=== PATIENT | male | born 1985 | race Caucasian/White ===

== ENCOUNTER 2019-11-01 15:40 | Emergency (ER) | payer OTHER ==
[~2019-11-01] VITALS: Ht 188 cm; Wt 68.0 kg
--- NOTE | 2019-11-01 15:48 | NUR ---
pt is in room #2b. dr Callahan evaluated the pt.
[2019-11-01] MEDS ORDERED: MORPHINE SULFATE 2 MG/1 ML DISP.SYRIN IV ONE ×2 (16:00→17:15)
[2019-11-01] MEDS ORDERED: ONDANSETRON 4 MG/2 ML VIAL IV ONE ×2 (16:00→22:45)
[2019-11-01] MEDS ORDERED: ONDANSETRON 4 MG/2 ML VIAL ONE ×2 (16:03→22:39)
[2019-11-01] MEDS ORDERED: MORPHINE SULFATE 4 MG/1 ML DISP.SYRIN ONE ×3 (16:03→22:39)
[2019-11-01 16:52] LABS: BASOPHILS % (AUTO) 0.3 % (0.0-2.0); EOSINOPHILS # (AUTO) 0.1 K/uL (0.0-0.7); EOSINOPHILS % (AUTO) 1.2 % (0.0-7.0); HEMATOCRIT 42.7 % (36.7-47.1); HEMOGLOBIN 14.6 g/dL (12.5-16.3); LYMPHOCYTES # (AUTO) 1.6 K/uL (20.0-40.0); LYMPHOCYTES % (AUTO) 15.7 % (20.5-51.5); MEAN CORPUSCULAR HEMOGLOBIN 29.2 uug (23.8-33.4); MEAN CORPUSCULAR HGB CONC 34 g/dL (32.5-36.3); MEAN CORPUSCULAR VOLUME 85.4 fL (73.0-96.2); MONOCYTES # (AUTO) 0.9 K/uL (2.0-10.0); MONOCYTES % (AUTO) 9.3 % (0.0-11.0); NEUTROPHILS # (AUTO) 7.3 K/uL (1.8-8.9); NEUTROPHILS % (AUTO) 73.5 % (38.5-71.5); PLATELET COUNT (AUTO) 211 K/uL (152-348)
[2019-11-01 16:59] LABS: POTASSIUM 3.6 mmol/L (3.5-5.1)
[2019-11-01 17:05] LABS: BILIRUBIN,DIRECT 0.1 mg/dL (0.0-0.2); BILIRUBIN,TOTAL 0.6 mg/dL (0.2-1.0); TOTAL PROTEIN, SERUM 7.7 g/dL (6.4-8.2)
[2019-11-01] MEDS ORDERED: SWABABLE VALVE TRANSFER SET EA MC ONE (17:21)
[2019-11-01] MEDS ORDERED: IV NORMAL SALINE 250 ML IV ONE (17:21)
[2019-11-01] MEDS ORDERED: IOHEXOL 300MG/ML 100 ML INFUS..BTL ONE (17:21)
[2019-11-01] MEDS ORDERED: MORPHINE SULFATE 4 MG/1 ML DISP.SYRIN IV ONE ×2 (17:30→22:45)
[2019-11-01] MEDS ORDERED: IV NORMAL SALINE 1000 ML BAG IV ONE (18:00)
[2019-11-01 19:00] LABS: HEMATOCRIT 38.4 % (36.7-47.1); HEMOGLOBIN 12.9 g/dL (12.5-16.3)
--- NOTE | 2019-11-01 19:41 | NUR ---
PT IS ACCEPTED BY [facility] . ADMITTING MD IS DR LEMUS. SPOKE TO CLINICAL INFORMATICS EDUCATORDANIEL LOGAN. TELEPHONE # FOR REPORT IS [phone].
--- NOTE | 2019-11-01 19:43 | NUR ---
REPORT GIVEN TO P[employer] UP [employer] DANIEL GILL.
--- NOTE | 2019-11-01 20:22 | NUR ---
Argelia duarte in [facility] - 11/01/19 at 2207 by UMESH Called Bill for ACLS transport to [facility]. Trip#[id number], [id number]
--- NOTE | 2019-11-01 20:22 | NUR ---
Called Bill for ACLS transport to [facility]. Trip#[id number], [id number]
--- NOTE | 2019-11-01 22:07 | NUR ---
Called [facility] is about 15 min eta.
--- NOTE | 2019-11-01 22:20 | NUR ---
Bill arrived to ER to transport patient to [facility]. Report and documentation given to EMT.
--- NOTE | 2019-11-01 22:27 | NUR ---
Report given to Harshil SANCHE[facility].
== END 2019-11-01 22:28 | disposition short-term general hospital (02) ==
LOC: ER 15:41
DX: S32.401A Unspecified fracture of right acetabulum, initial encounter for closed fracture (principal); S32.511A Fracture of superior rim of right pubis, initial encounter for closed fracture; S50.311A Abrasion of right elbow, initial encounter; M54.2 Cervicalgia; V23.4XXA Motorcycle driver injured in collision with car, pick-up truck or van in traffic accident, initial encounter; Y93.89 Activity, other specified; Y92.410 Unspecified street and highway as the place of occurrence of the external cause; Y99.8 Other external cause status
CPT/HCPCS: 36415; 71045; 72125; 72170; 73502; 73551; 74177; 80048; 80076; 84484; 85018; 85025; 85730; 93005; 96374; 96375; 96376; 99285; J2270 ×3; J2405 ×2; Q9967; 70030-TC; A4663; J7030; J7050